=== PATIENT | male | born 1995 | race Caucasian/White ===

== ENCOUNTER 2017-07-09 17:53 | Emergency (ER) | payer OTHER ==
[2017-07-09 18:17] VITALS: BP 102/68; PULSE 87; TEMP 98; BMI 23.0
--- NOTE | 2017-07-09 18:21 | PDOC ---
Rapid Medical Evaluation Time Seen by Provider: 07/09/17 18:16 Medical Evaluation: Allergies Allergy/AdvReac Type Severity Reaction Status Date / Time No Known Allergies Allergy Verified 07/09/17 18:14 07/09/17 18:16 I have performed a brief in-person evaluation of this patient. The patient presents with a chief complaint of: Lower back pain x several days, worse w/ movement and palpation. No recent injuries but does heavy lifting at work Pertinent physical exam findings:Well iraj and stable w/ reproducible ttp to lower back, ambulatory at triage I have ordered the following:nothing The patient will proceed to the ED for further evaluation Discharge Disposition - Diagnosis Back pain Qualifiers: Back pain location: low back pain Chronicity: acute Back pain laterality: bilateral Sciatica presence: without sciatica Qualified Code(s): M54.5 - Low back pain - Referrals - Patient Instructions - Post Discharge Activity
[2017-07-09] MEDS ORDERED: IBUPROFEN 600 MG TABLET (FP) PO ONE (18:54)
--- NOTE | 2017-07-09 19:01 | PDOC ---
History of Present Illness - General Chief Complaint: Back Pain Stated Complaint: BACK PAIN Time Seen by Provider: 07/09/17 18:16 History Source: Patient, Parent(s) Exam Limitations: No Limitations - History of Present Illness Initial Comments: 07/09/17 18:56 Patient came for evaluation of low back pain. 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 Denies numbness or tingling to hands or feet, denies any problems with bowel or bladder. Has taken ibuprofen with minimal resolved. Occurred: reports: last week Severity: reports: mild, moderate Pain Location: reports: back Modifying Factors: improves with: None Loss of Consciousness: no loss of consciousness Associated Symptoms (Fall): denies symptoms Past History - Travel Traveled outside of the country in the last 30 days: No Close contact w/someone who was outside of country & ill: No - Past Medical History Allergies/Adverse Reactions: Allergies Allergy/AdvReac Type Severity Reaction Status Date / Time No Known Allergies Allergy Verified 07/09/17 18:14 Home Medications: Ambulatory Orders No Home Medications 0 dose .ROUTE UTDICT 11/23/11 Cyclobenzaprine HCl 10 mg PO Q8H PRN #14 tablet 07/09/17 Naproxen [Naprosyn -] 500 mg PO TID #30 tablet 07/09/17 COPD: No Other medical history: DENIES. - Immunization History Immunization Up to Date: Yes - Suicide/Smoking/Psychosocial Hx Smoking Status: No Smoking History: Current every day smoker Have you smoked in the past 12 months: Yes Number of Cigarettes Smoked Daily: 2 Information on smoking cessation initiated: No Review of Systems - Review of Systems Able to Perform ROS?: Yes Is the patient limited Nigerian proficient: Yes Constitutional: Yes: Symptoms Reported, See HPI, Malaise HEENTM: Yes: Symptoms Reported Respiratory: No: Symptoms reported Musculoskeletal: Yes: Symptoms Reported, See HPI, Back Pain, Muscle Pain Integumentary: No: Symptoms Reported Neurological: Yes: See HPI. No: Symptoms reported, Headache All Other Systems: Reviewed and Negative *Physical Exam - Vital Signs Last Vital Signs Temp Pulse Resp BP Pulse Ox 98 F 87 19 102/68 95 07/09/17 18:14 07/09/17 18:14 05/09/18 18:14 07/09/17 18:14 07/09/17 18:14 - Physical Exam General Appearance: Yes: Nourished, Appropriately Dressed, Apparent Distress, Mild Distress HEENT: positive: HUMZA, Normal ENT Inspection, TMs Normal, Pharynx Normal Neck: positive: Supple. negative: Tender Respiratory/Chest: positive: Lungs Clear, Normal Breath Sounds Gastrointestinal/Abdominal: positive: Normal Bowel Sounds, Soft. negative: Tender, Guarding, Rebound Musculoskeletal: positive: Normal Inspection, Decreased Range of Motion, Muscle Spasm (mild spasm noted primarily on the right paravertebral spinous muscles at lumbar spine. Has no true bone tenderness, able to bend at waist but has difficulties secondary to spasm and low back. No numbness or tingling to feet, neurovascular intact). 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, Fully Oriented, Alert, Normal Mood/ Affect, Normal Response, Motor Strength 5/5 Progress Note - Progress Note Progress Note: Low back strain, will treat with NSAIDs and cyclobenzaprine *DC/Admit/Observation/Transfer Diagnosis at time of Disposition: Back pain Qualifiers: Back pain location: low back pain Chronicity: acute Back pain laterality: bilateral Sciatica presence: without sciatica Qualified Code(s): M54.5 - Low back pain - Discharge Dispostion Disposition: HOME Condition at time of disposition: Stable Decision to Admit order: No - Referrals Referrals: Jessee Trevino [Primary Care Provider] - - Patient Instructions Printed Discharge Instructions: DI for Back Strain or Sprain Additional Instructions: Rest, no heavy lifting or exercise until pain is resolved Hot soaks to neck and low back as often as possible/hot showers or Jacuzzis No massage or therapy until spasm is gone Continue Naprosyn 500 mg tablet, 1 tablet every 8 hours for the next 3 days then as needed for pain and swelling Cyclobenzaprine 1-10mg every 8 hours as needed for spasm If not significant improvement within 24 hours with medication and rest regime, followup with private physician for change in medications and /or therapy. - Post Discharge Activity Forms/Work/School Notes: Back to Work
== END 2017-07-09 19:19 | disposition home or self-care (01) ==
LOC: JERFT 17:53
DX: S39.012A Strain of muscle, fascia and tendon of lower back, initial encounter (principal); M62.830 Muscle spasm of back; X50.0XXA Overexertion from strenuous movement or load, initial encounter; Y93.89 Activity, other specified; Y92.511 Restaurant or cafe as the place of occurrence of the external cause; Y99.0 Civilian activity done for income or pay; F17.210 Nicotine dependence, cigarettes, uncomplicated
CPT/HCPCS: 99281-25

== ENCOUNTER 2021-02-26 12:04 | Emergency (ER) | payer OTHER ==
[2021-02-26 12:28] VITALS: BP 131/63; PULSE 72; TEMP 98.5; BMI 21.9
[2021-02-26] MEDS ORDERED: KETOROLAC TROMETHAMINE 30 MG/1 ML VIAL IM ONE (12:37)
[2021-02-26] MEDS ORDERED: KETOROLAC TROMETHAMINE 30 MG/1 ML VIAL ONE (12:57)
[2021-02-26 16:20] LABS: EPITHELIAL CELLS RARE /hpf
[2021-02-26 16:21] LABS: URINE MUCUS 1+
[2021-03-01 00:06] LABS: SARS-CoV-2 NAA Detected (Not Detected)
== END 2021-02-26 16:26 | disposition home or self-care (01) ==
LOC: FER 12:04
PROC: 3E0233Z Introduction of Anti-inflammatory into Muscle, Percutaneous Approach (ICD-10-PCS; principal; 2021-02-26)
DX: M54.50 Low back pain, unspecified (principal); N50.811 Right testicular pain
CPT/HCPCS: 76870-TC; 81003; 81015; 87086; 87804; 99285-25; C9803; U0003; U0005

== ENCOUNTER 2021-03-16 08:30 | Emergency (ER) | payer OTHER ==
[2021-03-16 08:52] VITALS: BP 128/77; PULSE 70; TEMP 98; BMI 23.1
== END 2021-03-16 09:24 | disposition home or self-care (01) ==
LOC: JER 08:30
DX: K12.2 Cellulitis and abscess of mouth (principal)
CPT/HCPCS: 99283-25

== ENCOUNTER 2023-04-17 22:55 | Emergency (ER) | payer OTHER ==
[2023-04-17 23:00] VITALS: BP 109/71; PULSE 88; RESP 19; TEMP 97.9; BMI 23.8
[2023-04-18 00:14] LABS: EPI CELLS 1 /uL (0-25.1); HYALINE CASTS 1 /uL (0-3.1); PH,URINE 6.5 (5.0-8.0); URINE APPEARANCE CLEAR; URINE BACTERIA 18 /uL (0-1359); URINE BILIRUBIN NEGATIVE (NEGATIVE); URINE COLOR YELLOW; URINE GLUCOSE (UA) NEGATIVE (NEGATIVE); URINE KETONE NEGATIVE (NEGATIVE); URINE LEUK ESTERASE 2+ (NEGATIVE); URINE NITRITE NEGATIVE (NEGATIVE); URINE PROTEIN TRACE (NEGATIVE); URINE RBC 114 /uL (0-23.9); URINE WBC 548 /uL (0-25.8)
[2023-04-18] MEDS ORDERED: DOXYCYCLINE HYCLATE 100 MG CAPSULE PO ONE (01:01)
[2023-04-18] MEDS ORDERED: LIDOCAINE HCL 1%, 10 MG/ML (20ML VIAL) ONE (01:02)
[2023-04-18] MEDS: DOXYCYCLINE HYCLATE 100 MG CAPSULE PO ONE (01:06)
== END 2023-04-18 01:06 | disposition home or self-care (01) ==
LOC: JER 22:55
DX: N50.811 Right testicular pain (principal); N45.2 Orchitis
CPT/HCPCS: 36415; 76870-TC; 81003; 87086; 87491; 87591; 99284-25

== ENCOUNTER 2023-08-31 18:05 | Emergency (ER) | payer SELFPAY ==
[2023-08-31 18:08] VITALS: BP 120/68; PULSE 74; RESP 20; TEMP 98.6; BMI 29.0
[2023-08-31] MEDS ORDERED: IBUPROFEN 600 MG TABLET (FP) PO ONE (20:14)
[2023-08-31] MEDS: IBUPROFEN 600 MG TABLET (FP) PO ONE (20:17)
== END 2023-08-31 20:34 | disposition home or self-care (01) ==
LOC: JERFT 18:05
DX: S93.401A Sprain of unspecified ligament of right ankle, initial encounter (principal); X58.XXXA Exposure to other specified factors, initial encounter
CPT/HCPCS: 73610-TC-RT-FY; 73630-TC-RT-FY; 99283-25

== ENCOUNTER 2023-09-20 17:39 | Emergency (ER) | payer SELFPAY ==
[2023-09-20 17:49] VITALS: BP 124/62; PULSE 67; RESP 18; TEMP 98.3; BMI 25.5
[2023-09-20] MEDS ORDERED: IBUPROFEN 600 MG TABLET (FP) PO ONE (18:02)
[2023-09-20] MEDS ORDERED: DIPHTH,PERTUSS(ACELL),TET 0.5 ML DISP.SYRIN IM ONE (18:03)
[2023-09-20] MEDS ORDERED: ACETAMINOPHEN 500 MG TABLET (FP) ONE (18:03)
[2023-09-20] MEDS: DIPHTH,PERTUSS(ACELL),TET 0.5 ML DISP.SYRIN IM ONE (18:07)
[2023-09-20] MEDS: IBUPROFEN 600 MG TABLET (FP) PO ONE (18:07)
[2023-09-20] MEDS: ACETAMINOPHEN 500 MG TABLET (FP) PO ONE (18:07)
== END 2023-09-20 18:43 | disposition home or self-care (01) ==
LOC: JERFT 17:39
PROC: 0XQMXZZ Repair Left Thumb, External Approach (ICD-10-PCS; principal; 2023-09-20)
PROC: 3E0234Z Introduction of Serum, Toxoid and Vaccine into Muscle, Percutaneous Approach (ICD-10-PCS; 2023-09-20)
DX: S61.012A Laceration without foreign body of left thumb without damage to nail, initial encounter (principal); W27.5XXA Contact with paper-cutter, initial encounter; Y99.0 Civilian activity done for income or pay; Z23 Encounter for immunization
CPT/HCPCS: 90715; 99283-25